=== PATIENT | female | born 1930 | race Caucasian/White ===

== ENCOUNTER 2018-09-16 20:13 | Emergency (ER) | payer MEDICARE ==
--- NOTE | 2018-09-16 21:51 | ED ---
Head Injury - HPI Summary HPI Summary: An 88 y/o female presents to [facility] with a chief complaint of a head injury the night of 09/16/18. She rates her pain as a 6/10. The patient has a laceration on her posterior head. She admits to having some lower back pain but denies neck pain or LOC. Per family, the patient fell on her back and hit her head on the porch railing when going inside her house. The patient and family are unsure if the patient is UTD on tetanus. She reports taking warfarin. - History Of Current Complaint Chief Complaint: EDHeadInjury Stated Complaint: FALL/ BACK PAIN Time Seen by Provider: 09/16/18 21:35 Hx Obtained From: Patient Mechanism Of Injury: Fall From A Standing Position Onset/Duration: Started Hours Ago, Still Present Onset of Pain: Immediate, Post Accident, Prior to Arrival Severity Currently: Moderate Severity Initially: Moderate Pain Intensity: 6 Pain Scale Used: 0-10 Numeric Location of Head Injury: Occipital Location: Discrete At: - occipital area Character: Unable to describe Associated Signs And Symptoms: Other: - lower back pain - Allergies/Home Medications Allergies/Adverse Reactions: Allergies Allergy/AdvReac Type Severity Reaction Status Date / Time MS Hydrocodone [Hydrocodone] Allergy Unknown Verified 08/06/16 13:05 Reaction Details MS Statins [Statins] Allergy Unknown Verified 08/06/16 13:05 Reaction Details PACEMAKER- NO MRIs Allergy PACEMAKER- Uncoded 07/07/16 11:44 NO MRIs PMH/Surg Hx/FS Hx/Imm Hx Endocrine/Hematology History: Reports: Hx Anticoagulant Therapy - coumadin Denies: Hx Diabetes Cardiovascular History: Reports: Hx Atrial Fibrillation, Hx Hypercholesterolemia , Hx Hypertension - ON DAILY MEDS, Hx Pacemaker/ICD, Other Cardiovascular Problems/Disorders - HLD, pacer Respiratory History: Denies: Hx Chronic Obstructive Pulmonary Disease (COPD) History: Denies: Hx Dialysis Musculoskeletal History: Denies: Hx Back Problems Sensory History: Reports: Hx Cataracts, Hx Contacts or Glasses - bi-focal Opthamlomology History: Reports: Hx Cataracts, Hx Contacts or Glasses - bi-focal Neurological History: Reports: Hx Dementia - "mild cognitive impairment" Denies: Hx Seizures - Surgical History Surgery Procedure, Year, and Place: 1960s [place]CTOMY [place], wisdom teeth removal, pacer, 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?, cataract surgery Hx Anesthesia Reactions: No Infectious Disease History: No Infectious Disease History: Denies: Traveled Outside the US in Last 30 Days - Family History Known Family History: Negative: Cardiac Disease, Hypertension, Diabetes - Social History Alcohol Use: 1 drink 4 times a week Alcohol Amount: 1-2 DRINKS/WEEK Substance Use Type: Reports: None Smoking Status (MU): Never Smoked Tobacco Review of Systems Negative: Fever ENT: Other - negative: neck pain Positive: Myalgia - lower back pain Positive: Other - laceration of occipital area Negative: Syncope All Other Systems Reviewed And Are Negative: Yes Physical Exam - Summary Physical Exam Summary: Appearance: Well appearing, no pain distress Skin: warm, dry, 1 cm laceration of occipital area. Head/face: laceration of occipital area. Eyes: EOMI, HORACIO ENT: normal Neck: supple, non-tender Respiratory: CTA, breath sounds present Cardiovascular: RRR, pulses symmetrical Abdomen: non-tender, soft Musculoskeletal: Mild spasm lumbar spine, strength/ROM intact Neuro: normal, sensory motor intact, A&Ox3 GCS: 15 Triage Information Reviewed: Yes Vital Signs On Initial Exam: Initial Vitals Temp Pulse Resp BP Pulse Ox 98 F 66 18 125/64 97 09/16/18 20:18 09/16/18 20:18 09/16/18 20:18 09/16/18 20:18 09/16/18 20:18 Vital Signs Reviewed: Yes Procedures - Laceration/Wound Repair 1 Location: head - no complications Description: Linear Length, Depth and Shape: 2 cm Closure: Skin Adhesive - Dermabond Diagnostics - Vital Signs Vital Signs Temp Pulse Resp BP Pulse Ox 09/16/18 20:18 98 F 66 18 125/64 97 - Laboratory Lab Statement: Any lab studies that have been ordered have been reviewed, and results considered in the medical decision making process. - CT Brain CT Interpretation Completed By: Radiologist Summary of CT Findings: No acute intracranial abnormality. ED physician has reviewed this imaging report. Cervical spine CT CT Interpretation Completed By: Radiologist Summary of CT Findings: 1. Multilevel degenerative disc and joint disease. 2. No acute fracture, subluxation, or aggressive osseous lesion. ED physician has reviewed this imaging report. Thoracic spine CT CT Interpretation Completed By: Radiologist Summary of CT Findings: 1. Mild compression deformity at T5. 2. No other acute post traumatic findings. ED physician has reviewed this imaging report. Lumbar spine CT CT Interpretation Completed By: Radiologist Summary of CT Findings: 1. Multilevel degenerative disc and joint disease. 2. No acute fracture, subluxation, or aggressive osseous lesion. ED physician has reviewed this imaging report. Head Injury Course/Dx Course Of Treatment: An 88 y/o female presents to [facility] with a chief complaint of a head injury the night of 09/16/18. She rates her pain as a 6/10. The patient has a laceration on her posterior head. She admits to having some lower back pain but denies neck pain or LOC. The patient and family are unsure if the patient is UTD on tetanus. In the ED course the patient received Boostrix Syr IV. The physical exam revealed a laceration of the occipital area and a mild spasm of her lumbar spine. Brain CT impression: No acute intracranial abnormality. Cervical spine CT impression: 1. Multilevel degenerative disc and joint disease. 2. No acute fracture, subluxation, or aggressive osseous lesion. Thoracic spine CT impression: 1. Mild compression deformity at T5. 2. No other acute post traumatic findings. ED physician has reviewed this imaging report. Lumbar spine CT impression: 1. Multilevel degenerative disc and joint disease. 2. No acute fracture, subluxation, or aggressive osseous lesion. A 2 cm laceration was closed with dermabond with no complications. The patient will be discharged home and was instructed to follow up with her PCP in three days. She is agreeable with this plan. Dx: fall, head injury, laceration. - Diagnoses Differential Diagnosis/HQI/PQRI: Contusion, Intracranial Bleed, Laceration Provider Diagnoses: Fall, Laceration, Head injury Discharge - Sign-Out/Discharge Documenting (check all that apply): Patient Departure - DC - Discharge Plan Condition: Stable Disposition: HOME Patient Education Materials: Skin Adhesive Care (ED) Referrals: Lizette Mercedes MD [Primary Care Provider] - 3 Days () Additional Instructions: Follow up with your PCP in 3 days. Return to the ED if you experience any new or worsening pain. - Billing Disposition and Condition Condition: STABLE Disposition: Home - Attestation Statements Document Initiated by Scribe: Yes Documenting Scribe: Suraj Durant Provider For Whom Scribe is Documenting (Include Credential): Francisco Flores MD Scribe Attestation: Suraj Burgess scribed for Francisco Flores MD on 09/16/18 at 2333. Scribe Documentation Reviewed: Yes Provider Attestation: The documentation as recorded by the scribe, Suraj Durant accurately reflects the service I personally performed and the decisions made by me, Francisco Flores MD Status of Scribe Document: Viewed
[2018-09-16] MEDS: Acetaminophen TAB* 325 MG PO ONE (23:30)
[2018-09-16] MEDS: Tetan/Diph/Pertus SYR(Tdap)* 0.5 ML SYR(BOOSTRIX) use SYR IM ONE (23:33)
[2018-09-16 23:47] VITALS: BP 145/75
== END 2018-09-16 23:45 | disposition home or self-care (01) ==
LOC: ED 20:13
DX: S09.90XA Unspecified injury of head, initial encounter (principal); S01.01XA Laceration without foreign body of scalp, initial encounter; I48.91 Unspecified atrial fibrillation; Z79.01 Long term (current) use of anticoagulants; E78.00 Pure hypercholesterolemia, unspecified; I10 Essential (primary) hypertension; E78.5 Hyperlipidemia, unspecified; G31.84 Mild cognitive impairment of uncertain or unknown etiology; F02.80 Dementia in other diseases classified elsewhere, unspecified severity, without behavioral disturbance, psychotic disturbance, mood disturbance, and anxiety; Z23 Encounter for immunization
CPT/HCPCS: 12001; 70450; 72125; 72128; 72131; 90471; 90715; 99283; A9270-GY

== ENCOUNTER 2019-05-07 12:45 | Emergency (ER) | payer MEDICARE ==
--- OUTSIDE RECORDS SUMMARY | 2019-05-07 13:45 | XMS REPORT | Continuity of Care Document ---
:1930 External Reference #:[id number] Author Name Dawson Suárez M.D. Address [address] [place] [address] Care Team Providers Name Role Phone Lizette Mercedes M.D. Primary Care Physician Unavailable Payers Date Identification Numbers Payment Provider Subscriber Effective: 1999 Policy Number: [id number] Medicare - [facility] Cleopatra Escobar PayID: [id number] [address] [place] [address] [place] [address] Problems Active Problems Provider Date Hypercholesterolemia Onset: Arterial retinal branch occlusion Maria Ines Alcazar O.D. Onset: 08/09/2015 Presence of intraocular lens Maria Ines Alcazar O.D. Onset: 02/07/2016 Regular astigmatism Maria Ines Alcazar O.D. Onset: 02/16/2018 Presbyopia Maria Ines Alcazar O.D. Onset: 02/16/2018 Central retinal artery occlusion Maria Ines Alcazar O.D. 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 [employer] Use Occasionally consumes alcohol Tobacco Use Start: Unknown Patient has never smoked Recreational Drug Use Never Used Drugs Smoking Status Reviewed: 04/19/19 Patient has never smoked Allergies, Adverse Reactions, Alerts Description No Known Drug Allergies Medications Active Medications SIG Qnty Indications Ordering Provider Date Vitamin D Unknown 2000Unit Capsules Vitamin B 12 Unknown 100mcg Lozenges Potassium Chloride Jelena ER Unknown 20Meq Tablets ER Digoxin 125mcg Unknown Tablets Metoprolol Succinate ER Unknown 25mg Tablets ER 24HR Tylenol 8 Hour Unknown 650mg Tablets ER Warfarin Sodium Mercedes Lizette M.D. 3mg Tablets Donepezil HCL Mercedes Lizette M.D. 10mg Tablets Prednisone 1mg Unknown Tablets History Medications Xarelto Unknown - 20mg Tablets 10/25/2018 Donepezil HCL Mercedes Lizette M.D. - 5mg 12/06/2018 Tablets Fluzone High-Dose To Be Given By Unknown - 0.5ml Pharmacist Per 12/06/2018 Lynda Standing Order Procedures Date Code Description Status 01/18/2019 91247 Visual Field Exam Extended Completed 12/07/2018 36065 Est Patient Intermediate Exam Completed 10/26/2018 01278 Scanning Computerized Opthalmic Diagnostic Posterior Seg Completed Retina 10/26/2018 61694 Est Patient Comprehensive Exam Completed 02/16/2018 64619 Visual Field Exam Extended Completed 02/16/2018 29644 Determination Of Refractive State Completed 02/16/2018 34259 Est Patient Comprehensive Exam Completed 02/10/2017 74567 Visual Field Exam Extended Completed 02/10/2017 81030 Est Patient Comprehensive Exam Completed 02/07/2016 88017 Est Patient Intermediate Exam Completed 08/09/2015 38917 Visual Field Exam Extended Completed 08/09/2015 30312 Est Patient Intermediate Exam Completed 02/06/2015 35937 Visual Field Exam Extended Completed 11/09/2014 50830 Est Patient Intermediate Exam Completed 10/10/2014 01409 Est Patient Intermediate Exam Completed 10/10/2014 08412 Fundus Photography With Interpretation And Report Completed 05/30/2014 35526 Extracapsular Cataract Extraction W/Intraocular Lens Completed 05/23/2014 11224 Extracapsular Cataract Extraction W/Intraocular Lens Completed 05/18/2014 79887 Ophthalmic Biometry Completed 05/18/2014 59712 Ophthalmic Biometry Completed 05/10/2014 39989 Est Patient Intermediate Exam Completed 05/03/2014 39548 Est Patient Comprehensive Exam Completed 01/12/2012 96838 Determination Of Refractive State Completed 01/12/2012 31913 Est Patient Comprehensive Exam Completed 12/03/2010 52078 Determination Of Refractive State Completed 12/03/2010 33713 Est Patient Comprehensive Exam Completed 12/03/2009 14779 Determination Of Refractive State Completed 12/03/2009 25959 New Patient Comprehensive Exam Completed 12/03/2005 13278 Determination Of Refractive State Completed 12/03/2005 35719 Est Patient Comprehensive Exam Completed Encounters Type Date Location Provider Dx Diagnosis Office Visit 01/18/2019 Janine Ahumada H34.12 Central retinal 2:10p , gabbie Dyson O.D. artery occlusion, left eye Z96.1 Presence of intraocular lens Office Visit 02/06/2015 1:00p Maria Ines Ahumada, 362.32 Occlusion gabbie PRASAD O.D. 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 If you are a smoker , we strongly recommend that you quit.If you are not a smoker, we strongly recommend that you do not start.Follow up:6 Month Follow Up DFE/IOP You can expect to have your eyes dilated at your next visit. If Dr. Suárez orders any additional testing, it may require extra time. We recommend that you bring sunglasses, as dilation drops often make you light sensitive until they wear off. We always recommend you bringsomeone to drive you home if you are uncomfortable driving with your eyes dilated. If you have any questions before your next visit, feel free to call our office at .Z96.1 Presence of intraocular lensComments:The artificial lens implants in both eyes appear to be stable at this time.
[2019-05-07] MEDS ORDERED: Tetan/Diph/Pertus SYR(Tdap)* 0.5 ML SYR(BOOSTRIX) use SYR contains LATEX IM ONE (13:55)
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
[2019-05-07 14:40] LABS: ABS Basophils 0.1 10^3/ul (0-0.2); ABS Lymphocytes 1.8 10^3/ul (1.0-4.8); ABS Monocytes 0.8 10^3/ul (0-0.8); ABS Neutrophils 8.4 10^3/ul (1.5-7.7); Eosinophil % 0.2 %; Hematocrit 41 % (35-47); Hemoglobin 13.5 g/dL (12.0-16.0); Lymphocyte % 16.5 %; Mean Corpuscular HGB Conc 33 g/dL (31-36); Mean Corpuscular Hemoglobin 32 pg (27-31); Mean Corpuscular Volume 95 fL (80-97); Mean Platelet Volume 8.8 fL (7.4-10.4); Platelet Count 250 10^3/uL (150-450); Red Blood Count 4.28 10^6 /uL (3.70-4.87); Red Cell Distribution Width 14 % (10-15); White Blood Count 11.1 10^3/uL (3.5-10.8)
[2019-05-07 14:58] LABS: Albumin/Globulin Ratio 1.5 (1-3); BUN/Creatinine Ratio 23.8 (8-20); Calcium 10.2 mg/dL (8.6-10.3); EGFR African American 82.3 (>60); Globulin 2.7 g/dL (2-4); Potassium 3.8 mmol/L (3.5-5.0); Total Bilirubin 0.5 mg/dL (0.2-1.0); Total Protein 6.7 g/dL (6.4-8.9)
[2019-05-07 15:28] LABS: Activated Partial Thrombo Time 60.3 seconds (26.0-38.0)
[2019-05-07 15:35] LABS: INR 5.5 (0.82-1.09)
[2019-05-07 16:44] VITALS: BP 172/65
== END 2019-05-07 16:43 | disposition home or self-care (01) ==
LOC: ED 12:45
DX: S05.12XA Contusion of eyeball and orbital tissues, left eye, initial encounter (principal); W18.30XA Fall on same level, unspecified, initial encounter; Y92.9 Unspecified place or not applicable; Z23 Encounter for immunization; R79.1 Abnormal coagulation profile; I10 Essential (primary) hypertension; Z79.01 Long term (current) use of anticoagulants; F03.90 Unspecified dementia, unspecified severity, without behavioral disturbance, psychotic disturbance, mood disturbance, and anxiety; Z95.810 Presence of automatic (implantable) cardiac defibrillator; Z88.5 Allergy status to narcotic agent; Z88.8 Allergy status to other drugs, medicaments and biological substances
CPT/HCPCS: 36415; 70450; 70486; 80053; 85025; 85610; 85730; 90471; 90715; 99282